=== PATIENT | female | born 1970 | race Hispanic/Latino ===

== ENCOUNTER 2018-03-15 09:15 | Emergency (ER) | payer BC ==
[2018-03-15 09:33] VITALS: RESP 18; BMI 30.9
--- NOTE | 2018-03-15 09:39 | ED PDOC ---
Arrival/HPI - General Chief Complaint: Finger,Hand,&Wrist Time Seen by Provider: 03/15/18 09:31 Historian: Patient - History of Present Illness Narrative History of Present Illness (Text): 03/15/18 09:35 47yo female with no pmhx who present with left 3rd finger pain/laceration s/p trauma last night. States she slammed her finger in a car door yesterday. She is not up to date with her TD booster. Notes throbbing pain to the finger. Did not take any medication for the pain. Past Medical History - Provider Review Nursing Documentation Reviewed: Yes - Travel History If Yes, travel location?: [place] - Reproductive Menopause: No - Cardiac Hx Cardiac Disorders: No - Pulmonary Hx Respiratory Disorders: No - Neurological Hx Neurological Disorder: No - HEENT Hx HEENT Disorder: No - Renal Hx Renal Disorder: No - Endocrine/Metabolic Hx Endocrine Disorders: No - Hematological/Oncological Hx Blood Disorders: No - Integumentary Hx Dermatological Disorder: No - Musculoskeletal/Rheumatological Hx Musculoskeletal Disorders: No - Gastrointestinal Hx Gastrointestinal Disorders: No - Genitourinary/Gynecological Hx Genitourinary Disorders: No - Psychiatric Hx Psychophysiologic Disorder: No Hx Substance Use: No - Surgical History Hx Section: Yes Hx Tonsillectomy: Yes - Anesthesia Hx Anesthesia: Yes Hx Anesthesia Reactions: No Family/Social History - Physician Review Nursing Documentation Reviewed: Yes Family/Social History: Unknown Family HX Smoking Status: Never Smoked Hx Alcohol Use: No Hx Substance Use: No Allergies/Home Meds Allergies/Adverse Reactions: Allergies No Known Allergies Allergy (Verified 03/15/18 09:33) Review of Systems - Physician Review All systems were reviewed & negative as marked: Yes - Review of Systems Constitutional: Normal Eyes: Normal ENT: Normal Respiratory: Normal Cardiovascular: Normal Gastrointestinal: Normal Genitourinary Female: Normal Skin: Laceration (Left 3rd finger) Neurological: Normal Endocrine: Normal Hemo/Lymphatic: Normal Psychiatric: Normal Physical Exam Vital Signs Reviewed: Yes Vital Signs Temp Pulse Resp BP Pulse Ox 03/15/18 09:21 98.4 F 81 18 117/76 98 Temperature: Afebrile Blood Pressure: Normal Pulse: Regular Respiratory Rate: Normal Appearance: Positive for: Well-Appearing, Non-Toxic, Comfortable Pain Distress: None Mental Status: Positive for: Alert and Oriented X 3 - Systems Exam Head: Present: Atraumatic, Normocephalic Pupils: Present: PERRL Extroacular Muscles: Present: EOMI Conjunctiva: Present: Normal Mouth: Present: Moist Mucous Membranes Neck: Present: Normal Range of Motion Respiratory/Chest: Present: Clear to Auscultation, Good Air Exchange. No: Respiratory Distress, Accessory Muscle Use Cardiovascular: Present: Regular Rate and Rhythm, Normal S1, S2. No: Murmurs Abdomen: No: Tenderness, Distention, Peritoneal Signs Back: Present: Normal Inspection Upper Extremity: Present: Normal Inspection. No: Cyanosis, Edema Lower Extremity: Present: Normal Inspection. No: Edema Neurological: Present: GCS=15, CN II-XII Intact, Speech Normal Skin: Present: Warm, Dry, Normal Color, Laceration (Approximately 1.5cm linear laceration on lateral left 3rd finger). No: Rashes Psychiatric: Present: Alert, Oriented x 3, Normal Insight, Normal Concentration Medical Decision Making ED Course and Treatment: 03/15/18 11:09 PT presented s/o left 3rd finger injury yesterday. She was NVI. Laceration was noted on the lateral aspect of the finger TD booster was updated Tramadol given for pain control. Abx prophylaxis given Left hand hand - #rd distal phalanx fracture Wound was cleansed with betadine. Edges approximated with steri strip. Finger splint placed. Pt referred to hand specialist. - RAD Interpretation Radiology Orders: 03/15/18 09:40 HAND LEFT 3RD DIGIT (FINGER) [RAD] Stat - Medication Orders Current Medication Orders: Discontinued Medications Amoxicillin/Clavulanate Potassium (Augmentin 875 Mg-125 Mg Tab) 1 tab PO STAT STA PRN Reason: Protocol Stop: 03/15/18 09:42 Last Admin: 03/15/18 10:07 Dose: 1 tab Tetanus/Reduced Diphtheria/Acell Pertussis (Boostrix Vaccine Inj) 0.5 ml IM .ONCE ONE Stop: 03/15/18 09:42 Last Admin: 03/15/18 10:07 Dose: 0.5 ml Immunization Registry Document 03/15/18 10:07 FLAVIO (Rec: 03/15/18 10:07 FLAVIO [id number]) Immunization Registry Consent Date 03/15/18 Tramadol HCl (Ultram) 50 mg PO STAT STA Stop: 03/15/18 09:42 Last Admin: 03/15/18 10:07 Dose: 50 mg MAR Pain Assessment Document 03/15/18 10:07 FLAVIO (Rec: 03/15/18 10:07 FLAVIO [id number]) Pain Reassessment Is this a pain reassessment? No Sleep Is patient sleeping during reassessment? No Pain Scale Used Pain Scale Used Numeric Disposition/Present on Arrival - Present on Arrival Any Indicators Present on Arrival: No History of DVT/PE: No History of Uncontrolled Diabetes: No Urinary Catheter: No History of Decub. Ulcer: No History Surgical Site Infection Following: None - Disposition Have Diagnosis and Disposition been Completed?: Yes Diagnosis: Finger fracture, Finger laceration Disposition: HOME/ ROUTINE Disposition Time: 11:15 Patient Plan: Discharge Condition: STABLE Discharge Instructions (ExitCare): Finger Fracture, Laceration Repair With Glue (DC) Additional Instructions: Follow up with orthopedist/finger specialist Return to ED for any new or worsening symptoms Prescriptions: Amoxicillin/Clavulanate [Augmentin 875 MG-125 MG] 1 tab PO BID #20 tab traMADol [Ultram] 50 mg PO TID #12 tab Referrals: Brent Grewal MD [Primary Care Provider] - Follow up with primary Francis Quinn MD [Staff Provider] - Follow up with primary Forms: [employer] (Malaysian)
[2018-03-15] MEDS ORDERED: Amoxicillin-Clav 875-125 mg Tab PO STA (09:41)
[2018-03-15] MEDS ORDERED: TDAP Vaccine 0.5 mL Syr IM ONE (09:41)
--- NOTE | 2018-03-15 12:20 | RAD ---
Date of service: 03/15/2018 PROCEDURE: Left middle finger radiographs. HISTORY: finger injury COMPARISON: None. TECHNIQUE: AP radiograph of the left hand, as well as spot oblique and lateral images of left middle finger were obtained. FINDINGS: LEFT MIDDLE FINGER: There is a mildly displaced fracture at the left middle finger tuft noted with slightly displace 2 bony fragment at the tip of the distal phalanx. Remainder of the left hand (as seen on the AP view) is grossly unremarkable. JOINTS: Normal. SOFT TISSUES: Soft tissue swelling seen at the distal left middle finger. OTHER FINDINGS: None. IMPRESSION: Acute slightly displaced fracture at the tip of the distal phalanx of the left middle finger
[2018-03-15 12:25] VITALS: BP 125/80; PULSE 18; TEMP 99; O2SAT 100
== END 2018-03-15 12:24 | disposition home or self-care (01) ==
LOC: ED 09:15
DX: S62.633A Displaced fracture of distal phalanx of left middle finger, initial encounter for closed fracture (principal); S61.213A Laceration without foreign body of left middle finger without damage to nail, initial encounter; W23.0XXA Caught, crushed, jammed, or pinched between moving objects, initial encounter; Z23 Encounter for immunization